=== PATIENT | male | born 1985 | race Native Hawaiian/Other Pacific Islander ===

== ENCOUNTER 2018-02-05 10:39 | Day surgery (SDC) | payer OTHER ==
[2018-01-30 06:58] VITALS: BMI 32.6
[2018-02-05] MEDS ORDERED: Midazolam 2 MG/2 ML VIAL ONE (12:35)
[2018-02-05] MEDS ORDERED: Propofol 10 mg/ml Inj (20 ML) ONE (12:35)
[2018-02-05] MEDS ORDERED: Sodium Chloride 0.9% 1,000 ML IV SCH (14:00)
[2018-02-05 14:37] VITALS: BP 108/68; PULSE 65; RESP 15; TEMP 97.7; O2SAT 99
== END 2018-02-05 15:16 | disposition home or self-care (01) ==
LOC: ENDO 10:39
PROVIDERS: ATTEND Internal Medicine Gastroenterology
DX: K29.50 Unspecified chronic gastritis without bleeding (principal); B96.81 Helicobacter pylori [H. pylori] as the cause of diseases classified elsewhere; K64.8 Other hemorrhoids; K64.4 Residual hemorrhoidal skin tags; R19.7 Diarrhea, unspecified; K62.89 Other specified diseases of anus and rectum
CPT/HCPCS: 43239; 45380; 88305; 88342; J2250; J2704; J7040 ×2